=== PATIENT | male | born 1965 | race Caucasian/White ===

== ENCOUNTER 2018-03-25 13:33 | Outpatient (CLI) | payer OTHER ==
[2016-05-20 11:31] VITALS: BP 121/79
--- NOTE | 2018-03-25 18:51 | Diagnostic Imaging Report ---
MENDEZ MCRAE [facility] [address] [facility].[address] [address] Report Submission Date: Mar 25, 2018 2:25:57 PM CDT Patient Study Name: LAKISHA REID Date: Mar 25, 2018 1:35:04 PM CDT Modality Type: DX Gender: M Description: SPINE : 69 Institution: [facility] Physician: MENDEZ MCRAE Lumbar spine History: Low back pain AP and lateral projections of the lumbar spine demonstrate normal alignment. Vertebral body height and intervertebral disc space height is maintained. There is no spondylolisthesis or spondylolysis. Small multilevel anterior marginal osteophytes are present. Impression: Small multilevel anterior marginal osteophytes are present. Otherwise, no osseous abnormality. Electronically signed on Mar 25, 2018 2:25:57 PM CDT by: Jonna LAZO
== END 2018-03-25 13:35 ==
LOC: RAD 13:33
PROVIDERS: ATTEND Family Medicine
DX: M54.5 Low back pain (principal)
CPT/HCPCS: 72100